=== PATIENT | female | born 1955 | race Caucasian/White ===

== ENCOUNTER 2016-08-24 01:45 | Observation (INO) | payer OTHER ==
[~2016-08-24] VITALS: Ht 157.5 cm; Wt 105.0 kg
[2016-08-24] VITALS (7 sets, daily range): BP systolic 122–173; BP diastolic 69–90
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
--- NOTE | ~2016-08-24 | S ---
[facility] [place] [place] [address] SURGICAL PATH RPT PROCEDURE Name: WILLOW PINEDO Room #: 444-P CHARISMA Woo#: [id number] Admission: 08/24/16 Date of : 59 Discharge: 08/26/16 Report #: [id number] Path Case #: [id number] PATHOLOGY REPORT COLLECTION DATE: 08/25/2016 RECEIVED DATE: 08/25/2016 SUBMITTING PHYS: Dr. Dante Benavides OTHER PHYS: Dr. Francois Lozada SPECIMEN(S) RECEIVED: A.Gallbladder * * * * * * * * * * * * FINAL DIAGNOSIS: Gallbladder "cholecystectomy": - Moderate chronic cholecystitis with cholesterolosis and cholelithiasis. PATHOLOGIST: Jeremiah Jacobs M.D. REPORT ELECTRONICALLY SIGNED BY: Jeremiah Jaocbs M.D. DATE/TIME: 08/27/2016 10:48 * * * * * * * * * * * * GROSS PATHOLOGY: Received in formalin labeled "Willow Pinedo, gallbladder," is a 9.2 x 2.8 x 1.6 cm, previously opened gallbladder with pink-rodriguez serosal surfaces. Opening the gallbladder reveals a velvety, light avery mucosa and an average wall thickness of 0.1 cm. Calculi are present displaying a light avery to light green and multinodular appearance, and no masses are noted grossly. Case Finisher sections from the body and fundus are submitted along with the proximal margin in cassette A1. (CAA; 08/26/2016) CLINICAL HISTORY: Cholelithiasis, possible acute cholecystitis INITIAL CPT CODE(S): A; 57447 Professional services performed by [facility] at [facility] [address] [address] Technical services performed by [facility] at [address] [place] [address] [address] [place] [address] SURGICAL PATH RPT PROCEDURE Name: WILLOW PINEDO Room #: 444-P CHARISMA Woo#: [id number] Admission: 08/24/16 Date of : 59 Discharge: 08/26/16 Report #: [id number] Path Case #: [id number] [address]. [facility] [address] [address] PHONE: [phone] DIRECTOR: Rolando Villagomez M.D. * * * END OF REPORT * * *
--- NOTE | ~2016-08-24 | EKG ---
[address] [place] [place] [address] ELECTROCARDIOGRAM REPORT Name: KHRISYOANA Room #: 444-P [facility]#: [id number] Admission: 08/24/16 Attend Phys: Francois Herring MD Discharge: Date of : 59 Report #: [id number] THIS REPORT FOR: //name// [facility] ED Test Date: 2016-08-24 Test Time: 01:56:30 Pat Name: YOANA PINEDO Department: Room: 444 Gender: F Medical Record Consult[facility] 1955 Requested By: Lionel Sanchez Order Number: [id number] MD: Rishi Daley Measurements Intervals [place] Rate: 57 P: 27 MO: 140 QRS: 0 QRSD: 101 T: 9 QT: 422 QTc: 411 Interpretive Statements Sinus rhythm Nonspecific ST segment abnormality Compared to ECG 04/09/2015 01:22:18 ST (T wave) deviation no longer present Electronically Signed On 08-24-2016 8:57:32 CDT by Rishi Daley [email or web address] <ELECTRONICALLY SIGNED> By: Rishi Daley MD, [facility] 08/24/16 0857 0156 0156 Rishi Daley MD, [facility] /EPI
--- NOTE | ~2016-08-24 | O ---
[facility] [place] [address] OPERATIVE REPORT Name: YOANA PINEDO Room #: 444-P CHARISMA Woo#: [id number] Admission: 08/24/16 Attend Phys: Francois Herring MD Discharge: 08/26/16 Date of : 59 Report #: [id number] THIS REPORT FOR: //name// CC: Francois Herring MD DATE OF SERVICE: 08/25/2016 DATE OF OPERATION: 08/25/2016 SURGEON: Dante Benavides M.D. PLASTICS FABRICATOR OR WELDER: Antoni Lozada M.D. PREOPERATIVE DIAGNOSES: 1. Symptomatic cholelithiasis, possible acute cholecystitis. 2. Morbid obesity (body mass index 42.3). 3. Gastroesophageal reflux disease. 4. Hypertension. POSTOPERATIVE DIAGNOSES: 1. Acute cholecystitis. 2. Morbid obesity (body mass index 42.3). 3. Gastroesophageal reflux disease. 4. Hypertension. PROCEDURE: Laparoscopic cholecystectomy with intraoperative cholangiogram. ANESTHESIA: General endotracheal anesthesia and local anesthetic. ESTIMATED BLOOD LOSS: 25 mL. SPECIMEN: Gallbladder. COMPLICATIONS: None appreciated. INDICATIONS FOR PROCEDURE: This 61-year-old female patient was seen in the [facility] with abdominal pain in the right upper quadrant radiating to her right flank after having Fijian food prior to going to bed. She denied any nausea, vomiting, fever or chills. Ultrasound revealed gallstones in the neck of the gallbladder with no evidence for a sonographic Conley's sign. Her liver function tests and lipase were within normal limits. The patient presents now for laparoscopic cholecystectomy for symptomatic cholelithiasis, possible acute cholecystitis. OPERATIVE FINDINGS: The patient's liver, stomach, small bowel and colon and the [facility] [address] [place] [address] OPERATIVE REPORT Name: YOANA PINEDO Room #: 444-P CHARISMA Woo#: [id number] Admission: 08/24/16 Attend Phys: Francois Herring MD Discharge: 08/26/16 Date of : 59 Report #: [id number] surrounding area appeared otherwise normal. The gallbladder was acutely inflamed during dissection as fluid was found in the tissue surrounding the gallbladder. The cystic duct was thickened and inflamed. This is also slightly enlarged, such that complete closure of the cystic duct required placement of an Endoloop. The patient's cholangiogram was normal without evidence for filling defects. Contrast flowed freely into the duodenal sweep. No other significant intraabdominal pathology was identified. Within the gallbladder, moderate to large sized gallstones were present. At the conclusion of the operation, the sponge, needle, and instrument counts were correct. There was no evidence for iatrogenic injury. DESCRIPTION OF PROCEDURE IN DETAIL: After the benefits and risks of the procedure were explained to the patient, which include but are not limited to risks of bleeding, infection, postoperative pain, postoperative expectations, informed consent was obtained. The patient was identified in the preoperative holding area. She was given IV antibiotics as documented in the chart in line with the SCIP protocol. The patient was then given IV sedation and she was intubated without incident. The patient's abdomen was prepped and draped in the standard sterile fashion. A time-out was then performed to identify the correct patient and procedure. Local anesthetic was infiltrated into the skin and subcutaneous tissue in the skin and subcutaneous tissue in the right upper quadrant of the abdomen. A #15 blade scalpel was used to make a small skin kamilla and a 5 mm Visiport was placed intraperitoneally with a 0-degree angled laparoscope. Pneumoperitoneum was achieved with insufflation with carbon dioxide to 15 mmHg. A 30-degree angled laparoscope was then inserted. A supraumbilical 11 mm port was then placed under direct visualization after local anesthetic was infiltrated into the skin and subcutaneous tissue and an appropriately sized incision was made. The patient was then placed in the reverse Trendelenburg position, rotated to her left. A subxiphoid 5 mm and right lateral 5-mm subcostal port were each placed under direct visualization after local anesthetic was infiltrated into the skin and subcutaneous tissue and appropriately sized incisions were made. Operative findings are as noted above. The dome of the gallbladder was retracted in cephalad direction. The gallbladder peritoneum was scored medially and laterally with the ultrasonic dissector. Dissection was then carried out around the cystic artery and cystic duct to identify both structures as the only two structures entering the gallbladder. Inflammatory changes were present in this area. The cystic duct was then clipped at its junction with the neck of the gallbladder. A ductotomy was created. A cholangiocatheter was then inserted and a cholangiogram performed with findings as noted above. The cholangiocatheter was then removed and the cystic duct was triply clipped and divided with the ultrasonic dissector. The cystic duct itself was quite inflamed and the clips did not appear to cross the entire duct. Decision was made to place a 2-0 PDS [facility] [address] [place] [address] OPERATIVE REPORT Name: YOANA PINEDO Room #: 444-P CHARISMA Woo#: [id number] Admission: 08/24/16 Attend Phys: Francois Herring MD Discharge: 08/26/16 Date of : 59 Report #: [id number] Endoloop. This was performed with the loop placed distal to the clips. Dissection then continued. The cystic artery was divided with the ultrasonic dissector with good hemostasis. The gallbladder was dissected out the liver bed without entrance into the gallbladder or liver bed. The gallbladder was placed in an Endopouch and removed through the supraumbilical port site. This required some stretching of the fascia in order to retrieve the specimen. The needle tipped suture passer was used to approximate the supraumbilical defect with a fxbwcv-dt-xcwlm 0 PDS suture. The suture was tagged and the port was replaced. The abdominal cavity was then reentered. The liver bed was made hemostatic with electrocautery. The Hemoclips and Endoloop were secured. The ieuxzu-lt-xnbwu suture was then tied under direct visualization to ensure no incorporation of intraabdominal content. The abdominal cavity was then desufflated and the ports were removed. Interrupted subcuticular 4-0 Monocryl sutures and Dermabond were used to close the skin incisions. The patient tolerated the procedure well. She was awakened, extubated, and taken to the recovery room in stable condition with no apparent intraoperative complications. <ELECTRONICALLY SIGNED> By: Dante Benavides MD, FACS 08/30/16 2221 0732 1125 Dante Benavides MD, FACS /nt
--- NOTE | ~2016-08-24 | HC ---
[facility] [place] [address] CONSULTATION Name: YOANA PINEDO Room #: 444-P CHARISMA Woo#: [id number] Admission: 08/24/16 Attend Phys: Francois Herring MD Discharge: 08/26/16 Date of : 59 Report #: [id number] THIS REPORT FOR: //name// CC: Francois Herring HISTORY OF PRESENT ILLNESS: The patient is a 61 female with history of hypertension, diabetes, hyperlipidemia, prior TIA, who typically follows with Dr. Daley. In February of 2016, she had a stress echo that showed no evidence of ischemia. She presented after awaking with some right upper quadrant pain, feels sharp, kind of radiated to the epigastric region. She denies any chest pain or chest tightness. She denies any chest heaviness. She denies any radiation to either shoulders. She denies any associated shortness of breath with this. REVIEW OF SYSTEMS: GENERAL: No fevers or chills. HEENT: No blurred vision. CARDIOVASCULAR: As above. PULMONARY: No productive cough. GASTROINTESTINAL: No nausea or vomiting. GENITOURINARY: No dysuria. MUSCULOSKELETAL: No myalgias or arthralgias. ENDOCRINE: No heat or cold intolerance. PAST MEDICAL HISTORY: 1. Hypertension. 2. Diabetes. 3. Hyperlipidemia. 4. TIA. SOCIAL HISTORY: Does not smoke. FAMILY HISTORY: Noncontributory. ALLERGIES: Include CEFACLOR and LISINOPRIL. HOME MEDICATIONS: Include hydrochlorothiazide, Bystolic, omeprazole, losartan, and Crestor. PHYSICAL EXAMINATION: VITAL SIGNS: Temperature is 36.0, pulse 60, respiration 20, blood pressure 149/81, and sats 97%. GENERAL: She is in no acute distress. HEENT: Oropharynx is clear. NECK: Supple, with no thyromegaly. HEART: Regular rate and rhythm with normal S1, S2. No S3, S4. LUNGS: Clear bilaterally. [facility] [address] [place] [address] CONSULTATION Name: YOANA PINEDO Room #: 444-[facility] Reuben Woo#: [id number] Admission: 08/24/16 Attend Phys: Francois Herring MD Discharge: 08/26/16 Date of : 59 Report #: [id number] ABDOMEN: Some mild tenderness just left to the epigastric region. There is no rebound. There is no guarding. There is no hepatosplenomegaly noted. EXTREMITIES: There is no clubbing, cyanosis, or edema. NEUROLOGIC: Cranial nerves 2-12 are intact. LABORATORY DATA: Troponins times 2 are negative. White count , hemoglobin 13.5, platelets 255. INR 1.0. Potassium 3.5, creatinine 1.0. BNP 54. Transthoracic echo performed today per my recommendations showed normal LV size and function, EF 55-60% with no significant valvular abnormalities and some mild pulmonary hypertension. Abdominal ultrasound shows several cultures. Her 12-lead EKG shows normal sinus rhythm with no ischemic changes and is unchanged from prior. I reviewed the results of her last nuclear stress test, which showed no ischemia, normal EF, which was performed on 03/01/2016. In summary, the patient is a 61-year-old presenting with what sounds to be more like abdominal discomfort. It does not sound to be an anginal equivalent. Her EKG, troponins and her echocardiogram are all within normal limits. As such, I do not think further cardiac evaluation is warranted and perhaps further evaluation of these gallstones can be undertaking either as an in or outpatient. <ELECTRONICALLY SIGNED> By: Noble Galindo MD 08/30/16 0830 1337 2211 Noble Galindo MD /nt
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
--- NOTE | ~2016-08-24 | 2DMMODE ---
[place] [address] [address] [place] [address] 2 D/M-MODE ECHOCARDIOGRAM Name: KHRISYOANA Room #: 444-P [facility] IN M.R.#: [id number] Admission: 08/24/16 Attend Phys: Francois Herring, Discharge: Date of : 59 Date of Service: 08/24/16 1241 Report #: [id number] THIS REPORT FOR: //name// APPROVED REPORT Study performed: 08/24/2016 10:38:19 EXAM: Comprehensive 2D, Doppler, and color-flow Echocardiogram Patient Location: In-Patient Room #: 444 Other Information Study Quality: Good Indications Chest Pain Hypertension/HDD 2D Dimensions RVDd: 38.55 mm LVEF(%): 47.78 (>50%) IVSd: 9.03 (7-11mm) LVOT Diam: 21.04 (18-24mm) LVDd: 52.12 mm PWd: 10.01 (7-11mm) Ascending Ao: 28.34 (22-36mm) LVDs: 39.52 (25-40mm) Aortic Root: 27.36 mm IVC: 18.00 mm Goldstein's LVEF: 47.78 % Volumes Left Atrial Volume (Systole) Single Plane 4CH: 37.48 mL Single Plane 2CH: 49.69 mL LA ESV Index: 25.00 mL/m2 Aortic Valve AoV Peak Javier.: 1.49 m/s AO Peak Gr.: 8.84 mmHg LVOT Max P.68 mmHg LVOT Max V: 0.96 m/s THEODORE Vmax: 2.24 cm2 Mitral Valve E/A Ratio: 1.2 MV Decel. Time: 191.41 ms MV E Max Javier.: 0.92 m/s MV A Javier.: 0.79 m/s MV PHT: 55.51 ms [facility] [place] [address] 2 D/M-MODE ECHOCARDIOGRAM Name: YOANA PINEDO Room #: 444-P [facility] IN M.R.#: [id number] Admission: 08/24/16 Attend Phys: Francois Herring, Discharge: Date of : 59 Date of Service: 08/24/16 1241 Report #: [id number] IVRT: 96.89 ms Pulmonary Valve PV Peak Javier.: 0.98 m/s PV Peak Gr.: 3.86 mmHg Pulmonary Vein P Vein S: 0.60 m/s P Vein A: 0.31 m/s P Vein D: 0.34 m/s P Vein A Dur.: 124.6 msec P Vein S/D Ratio: 1.76 Tricuspid Valve TR Peak Javier.: 3.14 m/s RAP Estimate: 5.00 mmHg TR Peak Gr.: 39.35 mmHg PA Pressure: 44.00 mmHg Left Ventricle The left ventricle is normal size. There is normal LV segmental wall motion. There is normal left ventricular wall thickness. The left ventricular systolic function is normal. The left ventricular ejection fraction is within the normal range. LVEF is 55-60%. The left ventricular diastolic function is normal. Right Ventricle The right ventricle is normal size. The right ventricular systolic function is normal. Atria The left atrium size is normal. The right atrium size is normal. Aortic Valve Aortic valve is mildly sclerotic No aortic regurgitation is present. There is no aortic valvular stenosis. Mitral Valve The mitral valve is normal in structure. Mild mitral regurgitation. No evidence of mitral valve stenosis. Tricuspid Valve The tricuspid valve is normal in structure. There is mild tricuspid regurgitation. The right atrial pressure is estimated at 5 mmHg. There is mild-moderate pulmonary hypertension with an estimated PAP of 44 mmHg. Pulmonic Valve The pulmonary valve is normal in structure. [place] [address] 2 D/M-MODE ECHOCARDIOGRAM Name: YOANA PINEDO Room #: 444-P [facility] IN M.R.#: [id number] Admission: 08/24/16 Attend Phys: Francois Herring, Discharge: Date of : 59 Date of Service: 08/24/16 1241 Report #: [id number] valvular regurgitation. Great Vessels The aortic root is normal in size. The ascending aorta is normal in size. IVC is normal in size and collapses >50% with inspiration. Pericardium There is no pericardial effusion. <Conclusion> The left ventricular systolic function is normal. There is normal LV segmental wall motion. LVEF 55-60%. Aortic valve is mildly sclerotic. There is no aortic valvular stenosis or insufficiency. The mitral valve is normal in structure. Mild mitral regurgitation. Pulmonary artery pressure of 44mmHg. There is no pericardial effusion. <ELECTRONICALLY SIGNED> By: Rishi Daley MD, FACC 08/24/16 1241 1241 124 Rishi Daley MD, FACC /INF
[~2016-08-24 01:45] MED LIST: AMLODIPINE BESY10 MG PO; BYSTOLIC10 MG PO; FLONASE 0.05%50 MCG NS; HYDROCHLOROTH12.5 M1 PO; LIPITOR 20 MG T20 M1 PO; LISINOPRIL40 MG PO; LOPRESSOR50 PO; NORCO 5-325 TA1 EACH PO; NORVASC10 MG PO; PRILOSEC; PRILOSEC20 MG PO
[2016-08-24] MEDS ORDERED: DIOVAN320 MG (01:57)
[2016-08-24] MEDS ORDERED: CRESTOR10 MG PO (01:58)
[2016-08-24 02:31] LABS: ABSOLUTE NEUTROPHILS 5.1 thou/uL (1.4-8.2); BASOPHILS 0.6 % (0.0-2.0); EOSINOPHILS 4.5 % (0.0-3.0); HEMATOCRIT 38.4 % (37.0-47.0); HEMOGLOBIN 13.5 gm/dL (12.0-15.0); LYMPHOCYTES 26.6 % (24.0-44.0); MCH 31.6 pg (26.0-34.0); MCV 90.3 fL (80.0-100.0); MONOCYTES 6.9 % (1.0-8.0); PLATELET COUNT 255 thou/uL (150-400); POLYS 61.4 % (36.0-66.0); RBC 4.25 mil/uL (4.20-5.00); RDW 12.4 % (10.5-14.5); WBC 8.3 thou/uL (4.0-11.0)
[2016-08-24 02:34] LABS: ANION GAP 12 mmol/L (7-16); BUN 13 mg/dL (7-18); CALCIUM 9.1 mg/dL (8.5-10.1); CHLORIDE 98 mmol/L (98-107); CO2 27 mmol/L (21-32); GLUCOSE 209 mg/dL (74-106); POTASSIUM 3.5 mmol/L (3.5-5.1); SODIUM 137 mmol/L (136-145)
[2016-08-24 02:35] LABS: MANUAL DIFF NO
[2016-08-24 02:42] LABS: APTT 26.9 Seconds (24.5-32.8); PROTIME 10.1 Seconds (9.3-11.4)
[2016-08-24 02:51] LABS: ALBUMIN 3.5 g/dL (3.4-5.0); ALKALINE PHOSPHATASE 87 U/L (46-116); CK-MB MASS 0.6 ng/mL (<0.5-3.6); MAGNESIUM 1.8 mg/dL (1.8-2.4); NT-PRO BRAIN NAT PEPTIDE 54 pg/mL (<300); SGOT 21 U/L (15-37); SGPT 35 U/L (30-65); TOTAL BILIRUBIN 0.3 mg/dL (<0.1-1.0); TROPONIN-I < 0.04 ng/mL (<0.04-0.07)
[2016-08-24] MEDS ORDERED: OMEPRAZOLE20 M1 (04:43)
[2016-08-25 06:12] VITALS: BP 141/77
[2016-08-25 08:26] VITALS: BP 133/72
[2016-08-25 09:00] VITALS: BP 157/86
[2016-08-25 16:41] VITALS: BP 120/56
[2016-08-25 20:25] VITALS: BP 123/61
[2016-08-26 04:15] VITALS: BP 114/72
[2016-08-26 06:13] LABS: ABSOLUTE NEUTROPHILS 7.2 thou/uL (1.4-8.2); BASOPHILS 0.1 % (0.0-2.0); HEMATOCRIT 33.5 % (37.0-47.0); HEMOGLOBIN 11.6 gm/dL (12.0-15.0); LYMPHOCYTES 11.2 % (24.0-44.0); MCH 31.7 pg (26.0-34.0); MCHC 34.6 g/dL (28.0-37.0); MCV 91.5 fL (80.0-100.0); MONOCYTES 6.1 % (1.0-8.0); PLATELET COUNT 205 thou/uL (150-400); POLYS 82.6 % (36.0-66.0); RBC 3.66 mil/uL (4.20-5.00); RDW 12.4 % (10.5-14.5); WBC 8.7 thou/uL (4.0-11.0)
[2016-08-26 06:21] LABS: MANUAL DIFF NO
[2016-08-26 06:31] LABS: CALCIUM 8.5 mg/dL (8.5-10.1); CREATININE 0.8 mg/dL (0.6-1.0); POTASSIUM 4.3 mmol/L (3.5-5.1)
[2016-08-26 07:17] VITALS: BP 114/72
== END 2016-08-26 09:39 | disposition home or self-care (01) ==
LOC: ER 01:45 → EROBS 03:47 → 4S 03:47
PROVIDERS: Emergency Medicine; Surgery
DX: K81.0 Acute cholecystitis (principal); R07.89 Other chest pain; R10.11 Right upper quadrant pain; E78.5 Hyperlipidemia, unspecified; K21.9 Gastro-esophageal reflux disease without esophagitis; I63.9 Cerebral infarction, unspecified; I10 Essential (primary) hypertension; E66.01 Morbid (severe) obesity due to excess calories; Z68.41 Body mass index [BMI] 40.0-44.9, adult
CPT/HCPCS: 50010; 50101; 50249; 50411; 50445; 50555; 50558; 50962; 51297; 51489; 51975; 52265; 52266; 53307; 54022; 54118; 55245; 55317; 56462; 56525; 56526; 56639; 62110; 62900; 70005

== ENCOUNTER → 2019-12-20 | Outpatient (CLI) | payer OTHER ==
[~2019-12-20] MED LIST changes: +CRESTOR10 MG PO; +DIOVAN320 MG; +OMEPRAZOLE20 M1
[2019-12-20 11:07] LABS: CREATININE 0.9 mg/dL (0.6-1.0)
== END ==
LOC: LABMALL 09:27 → CAT 09:27
PROVIDERS: ATTEND Family Medicine
DX: K76.0 Fatty (change of) liver, not elsewhere classified (principal); K42.9 Umbilical hernia without obstruction or gangrene; Z90.49 Acquired absence of other specified parts of digestive tract